=== PATIENT | female | born 1995 | race Caucasian/White ===

== ENCOUNTER 2017-04-22 21:54 | Emergency (ER) | payer SELFPAY ==
[2017-04-22 21:56] VITALS: BP 122/83; PULSE 134; RESP 24; TEMP 36.7; O2SAT 96; BMI 26.8
--- NOTE | 2017-04-22 23:27 | ED.RN ---
PTS IS COMING TO GET HER. ARRIVAL TIME IS 45MIN
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
[2017-04-23 00:41] VITALS: BP 116/68; PULSE 89; RESP 17; O2SAT 99
--- NOTE | 2017-04-23 00:42 | ED.RN ---
PT GIVEN WRITTEN AND VERBAL DISCHARGE INSTRUCTIONS. PT AT BEDSIDE WITH PT, AND HEARD INSTRUCTION REVIEW. PT VERBALIZES UNDERSTANDING. PT DRESSES SELF WITHOUT ASSISTANCE NEEDED FROM STAFF. PT A+OX3. AMBULATORY HOME WITH WITHOUT ASSISTANCE FROM STAFF.
== END 2017-04-23 00:48 | disposition home or self-care (01) ==
LOC: ED 22:37
PROVIDERS: Emergency Provider Emergency Medicine
DX: F51.4 Sleep terrors [night terrors] (principal); F43.10 Post-traumatic stress disorder, unspecified; R11.2 Nausea with vomiting, unspecified; T23.001A Burn of unspecified degree of right hand, unspecified site, initial encounter; X08.8XXA Exposure to other specified smoke, fire and flames, initial encounter; Y93.9 Activity, unspecified; Y92.9 Unspecified place or not applicable; Y99.9 Unspecified external cause status; F17.210 Nicotine dependence, cigarettes, uncomplicated
CPT/HCPCS: 99284; A4216